=== PATIENT | female | born 1950 | race Caucasian/White ===

== ENCOUNTER 2021-09-19 09:27 | Day surgery (SDC) | payer MEDICARE, BC ==
[2021-09-19] MEDS ORDERED: Lactated Ringers 1,000 ML IV SCH (10:45)
[2021-09-19] MEDS ORDERED: fentaNYL 100 MCG/2 ML SDV ONE (11:05)
[2021-09-19] MEDS ORDERED: Midazolam 1 MG/ML 2 ML SDV ONE (11:05)
[2021-09-19] MEDS ORDERED: Propofol 200 MG/20 ML SDV ONE (11:05)
== END 2021-09-19 13:15 | disposition home or self-care (01) ==
LOC: JP.SDS 09:27
PROVIDERS: ATTEND Family Medicine
DX: Z12.11 Encounter for screening for malignant neoplasm of colon (principal); K57.30 Diverticulosis of large intestine without perforation or abscess without bleeding; J45.909 Unspecified asthma, uncomplicated; E78.5 Hyperlipidemia, unspecified; K21.9 Gastro-esophageal reflux disease without esophagitis; Z88.8 Allergy status to other drugs, medicaments and biological substances; Z87.891 Personal history of nicotine dependence
CPT/HCPCS: G0121; J2250; J2704; J3010; J7120